=== PATIENT | male | born 1960 | race Caucasian/White ===

== ENCOUNTER 2022-12-07 01:06 | Day surgery (SDC) | payer BC, SELFPAY ==
[2022-12-06 11:43] VITALS: BMI 22.4
--- NOTE | 2022-12-06 12:15 | PC.NURSE ---
Report to the Outpatient Waiting Room, entrance under the green pavilion located off [facility], at time __0730 on date __12/07/22 . Planned Procedure Time: ___929 . Time changes happen often and if your time is changed the preop area will call you the afternoon before. - You and your visitor will be asked to self-screen and do not enter if you have any COVID symptoms. - A mask is optional within the hospital at this time. Patients may have clear liquids (water, carbonated beverages, clear teas, apple juice) until 3 hours prior to surgery with a maximum of 20 ounces. - No food from midnight until time of surgery - Infants may have breast milk until 4 hours before surgery, infant formula 6 hours prior to surgery. - Children will be allowed to drink immediately following surgery. If applicable, please bring a bottle or sippy cup to assist with drinking. Juice, water, soda, and popsicles are readily available. For infants on formula, please bring formula the day of surgery. Pacifiers are allowed. Take the following medications with a SIP of water the morning of surgery: NONE DO NOT STOP ANY OF YOUR OTHER PRESCRIPTION MEDICATIONS PRIOR TO SURGERY ?EXCEPT THE FOLLOWING Medications to discontinue _PT STATES LAST DOSE ELIQUIS & ASPIRIN 12/05/22_ Date to take last dose Please no make-up, nail swedish, hairspray, perfume, deodorant, or body powder the day of surgery. No jewelry (including any body piercings) or valuables the day of surgery, leave them at home. Please take a shower or bath the night before, or the morning of, surgery with an antibacterial soap. Wear comfortable, loose fitting clothing. Children are encouraged to wear pajamas. - Jewelry must be removed prior to entering the operating room. Rings and piercings that are not removed may be cut off. - The hospital will not accept responsibility for valuables. - Please leave all valuables, including medications, at home the day of surgery. If you are going home after surgery, a licensed fuel truck driver must drive you home. - NO public transportation without another adult if you receive anesthesia. - We recommend that an adult stay with you for 24 hours following discharge. - We also recommend that you do not drive, make important decision, drink alcoholic beverages, or take any drugs that were not prescribed by your health care provider for at least 24 hours after your discharge time. For Pediatric surgeries, we recommend two adults accompany the child home. Follow any additional instructions given to you from your surgeon. If you or anyone in your household have experienced Covid symptoms in the past week, please notify your surgeon or the nurse liaison at the phone number below for possible testing. Telephone instructions given to ____PT and asked if any additional questions and then verbalized understanding. Patient advised to call surgeon office or pre surgery nurse liaison [phone] if any additional questions.
--- NOTE | 2022-12-06 13:11 | P.PNAN_ITS ---
Anes - Initial Pre Proc Eval Procedure: Operation Date: 12/07/22 09:30 Proposed Procedures p Cystoscopy, Left Ureteroscopy, Left Stone Extraction, Possible Left Retrograde Pyelogram, Possible Left Stent Placement, Holmium Laser Lithotripsy, Right Retrgrade Pyelogram with Right Stent Removal - Nelson Heath MD Date/Time: 12/06/22 13:11 Surgeon: Nelson Heath MD Pre Op Diagnosis: Left Ureteral Stones, Right Renal Stones Patient Data Age: 62 Gender: M Height: 1.8 m Weight: 72.72 kg Allergies Allergy/AdvReac Type Severity Reaction Status Date / Time sotalol Allergy CARDIAC Verified 12/06/22 11:39 ARREST diltiazem AdvReac UNABLE TO Verified 12/06/22 11:39 RECALL STEROIDS AdvReac ELEVATED Uncoded 12/06/22 12:18 BLOOD SUGAR Home Medications Medication Instructions Recorded Confirmed Type apixaban 5 mg tablet (Eliquis) 5 mg BID 12/06/22 12/06/22 History aspirin 81 mg capsule 81 mg PO HS 12/06/22 12/06/22 History atorvastatin 80 mg tablet 80 mg DAILY 12/06/22 12/06/22 History dapagliflozin propanediol 10 mg 10 mg DAILY 12/06/22 12/06/22 History tablet (Farxiga) metoprolol succinate 50 mg 50 mg PO HS 12/06/22 12/06/22 History tablet,extended release 24 hr sacubitril 24 mg-valsartan 26 mg 1 tablet BID 12/06/22 12/06/22 History tablet (Entresto) Patient hx anesthesia problems: none Family hx anesthesia problems: none Results Review: All pre-operative results and documents have been reviewed as part of the pre- operative evaluation. [facility] Past Medical History Medical History (Updated 12/07/22 @ 07:05 by Nelson Heath MD) CHF (congestive heart failure) Diabetes type 2, controlled History of heart attack Hyperlipidemia Hypertension Surgical History Surgical History (Updated 12/06/22 @ 13:12 by Nic Malhotra DO) History of coronary artery stent placement Social History Social History Smoking status: Former smoker Tobacco type: cigarettes Second hand tobacco smoke exposure: No Additional smoking assessment comments: PT STATES 1PK EVERY 3 DAYS/OFF-ON/QUIT 2010~ Alcohol intake: never Substance use: never Substance use type: does not use Living arrangements: with family Additional living arrangements comments: PT LIVES WITH HIS 2 SONS Spiritual care concerns: No Anes - Eval Final PreProcedure Day of Procedure 12/06/22 13:11 Patient weight: normal Heart: regular rate and rhythm Lungs: clear to auscultation and normal air movement Airway: Mallampati scale class II Neurological: alert and oriented Last oral intake: >/= 8 hours ASA classification: III Emergent: no Anesthetic plan: proceed Anesthesia type and monitoring: general LMA and standard monitoring Results Review: All pre-operative results and documents have been reviewed as part of the pre- operative evaluation. Informed Consent: The patient's anesthetic plan and its attendant risks and benefits were discussed with the patient/family/POA. Questions were solicited and answers provided to the satisfaction of the patient/family/POA.
[2022-12-07] VITALS (9 sets, daily range): BP systolic 105–179; BP diastolic 72–130; PULSE 60–117; RESP 12–22; TEMP 36.2–36.7; O2SAT 99–100
--- NOTE | ~2022-12-07 | XR_ITS ---
EXAMINATION: XR retrograde pyelo w/stent LT DATE: 12/07/2022 10:07 INDICATION: Left internal ureteral stent placement TECHNIQUE: Fluoroscopic images from a left internal ureteral stent placement are submitted for review . 85 seconds of fluoroscopy time. 4 fluoroscopic images FINDINGS: There is a left double-J internal ureteral stent projecting in expected position, with proximal Banner loop at the level of the renal pelvis and distal loop in the pelvis within the bladder lumen. IMPRESSION: 1. Left internal ureteral stent placement. Please refer to real-time procedural findings for detail s. Reviewed, dictated and finalized at location B. IMPRESSION: 1. Left internal ureteral stent placement. Please refer to real-time procedur al findings for details.
--- NOTE | 2022-12-07 07:04 | PM.HPGS ---
History of Present Illness History of Present Illness Consent: Risks, benefits, and alternatives have been discussed and questions answered. Patient agrees to proceed with procedure. Chief complaint: Left Ureteral Stones, Right Renal Stones Narrative: Ariel Dempsey is a 62 year old male Recently cared for by my partner Dr. Perez. Patient was found to have large obstructing left distal ureteral stone with urinary tract infection. Additionally he had perinephric stranding around his right kidney with hydronephrosis. Endoscopic evaluation revealed a right distal ureteral stricture. A ureteral stent has been placed on the right and left for different reasons. He now presents for definitive intervention. He is aware the risk of these procedures including ureteral injury requiring replacement of ureteral stents on either or both sides. His where the risk of postoperative urinary tract infection, hematuria and need for additional procedures. Review of Systems Review of Systems: All systems reviewed & are unremarkable except as noted in HPI and below PMFSH Past Medical History Medical History (Updated 12/07/22 @ 07:05 by Nelson Heath MD) CHF (congestive heart failure) Diabetes type 2, controlled History of heart attack Hyperlipidemia Hypertension Surgical History Surgical History (Updated 12/06/22 @ 13:12 by Nic Malhotra DO) History of coronary artery stent placement Social History Social History Smoking status: Former smoker Tobacco type: cigarettes Second hand tobacco smoke exposure: No Additional smoking assessment comments: PT STATES 1PK EVERY 3 DAYS/OFF-ON/QUIT 2010~ Alcohol intake: never Substance use: never Substance use type: does not use Living arrangements: with family Additional living arrangements comments: PT LIVES WITH HIS 2 SONS Spiritual care concerns: No Meds Home Medications and Allergies Home Medications Medication Instructions Recorded Confirmed Type apixaban 5 mg tablet (Eliquis) 5 mg BID 12/06/22 12/06/22 History aspirin 81 mg capsule 81 mg PO HS 12/06/22 12/06/22 History atorvastatin 80 mg tablet 80 mg DAILY 12/06/22 12/06/22 History dapagliflozin propanediol 10 mg 10 mg DAILY 12/06/22 12/06/22 History tablet (Farxiga) metoprolol succinate 50 mg 50 mg PO HS 12/06/22 12/06/22 History tablet,extended release 24 hr sacubitril 24 mg-valsartan 26 mg 1 tablet BID 12/06/22 12/06/22 History tablet (Entresto) Allergies Allergy/AdvReac Type Severity Reaction Status Date / Time sotalol Allergy CARDIAC Verified 12/06/22 11:39 ARREST diltiazem AdvReac UNABLE TO Verified 12/06/22 11:39 RECALL STEROIDS AdvReac ELEVATED Uncoded 12/06/22 12:18 BLOOD SUGAR Exam Const: General: no acute distress Resp: Effort & Inspection: normal respiratory effort GI: Inspection: non-distended GI Palp: No abdominal tenderness and No Guarding due to palpation present (GI) Auscultation: normal bowel sounds Assessment and Plan Assessment and plan (1) Left ureteral stone: Code(s): N20.1 - Calculus of ureter Status: Acute (2) Hydronephrosis, right: Code(s): N13.30 - Unspecified hydronephrosis Status: Acute Assessment and Plan: Cystoscopy, right ureteral stent removal with right retrograde pyelogram Left ureteroscopy with laser lithotripsy, stone extraction, possible retrograde pyelogram and stent replacement
[2022-12-07] MEDS: LACTATED RINGERS 1,000 ML 30 ML IV CONT ×2 (08:00→10:08)
[2022-12-07 08:35] LABS: Glucose Point of Care 256 mg/dl (65-105)
[2022-12-07] MEDS: INSULIN HUMAN REGULAR (*BKC) 100 UNITS/ML IV PUSH (08:43)
[2022-12-07 08:47] LABS: Anion Gap 7 mmol/L (8-16); Blood Urea Nitrogen 41 mg/dL (9-20); Calcium 8.9 mg/dL (8.4-10.2); Carbon Dioxide 21 mmol/L (22-30); Chloride 100 mmol/L (98-107); Estimated CRCL calculation 22 ml/min; Estimated Glomerular Filt Rate 20; Glucose 269 mg/dL (65-110); Sodium 128 mmol/L (137-145)
--- NOTE | 2022-12-07 09:05 | WPDHPUPDATE1 ---
History and Physical Update Update Date/Time: 12/07/22 09:05 History and Physical has been reviewed, including an updated exam of the patient. There are NO changes in the patient's condition. Risks, benefits, and alternatives have been discussed and questions answered. Patient agrees to proceed with procedure.
[2022-12-07] MEDS: LIDOCAINE HCL 2% GEL UROJET 10 ML PKG MUCOUS MEM (09:35)
--- NOTE | 2022-12-07 10:06 | P.OP_ITS ---
Procedure Note - Detailed Date of Procedure 12/07/22 Pre-op Diagnosis Left Ureteral Stones, Right Hydronephrosis Post-op Diagnosis Same Procedure Performed Cystoscopy, right ureteral stent removal and right retrograde pyelogram. Cystoscopy, left ureteral stent removal, left ureteroscopy with laser lithotripsy and stent replacement Surgeon Nelson Heath MD Anesthesia General Description of Procedure Patient brought to the operative suite where he has prepped and draped in routine sterile fashion while in dorsal lithotomy position. 2% xylocaine jelly was introduced intraurethrally and general anesthesia is administered per the anesthesia department. Cystoscopy is undertaken with a 19 F rigid cystoscope. There was no urethral strictures and minimal prostatic hyperplasia. The tip of the indwelling right ureteral stent is grasped ( and an otherwise normal bladder) in the stent is brought to the external urethral meatus. A 0.035 in glidewire was advanced into the right renal pelvis and the stent is removed. Retrograde pyelography was obtained over the wire with a angiographic catheter. There appears to be some concentric mild narrowing of the distal ureter consistent with ureteral edema. As per patient's request preoperatively we opted to leave the right ureteral stent out and will plan renal ultrasonography and several weeks. The left ureteral stent was then grasped and brought to the meatus. A 0.035 in glidewire was advanced in the left renal pelvis and the distal ureter was d ilated with an 8 F 10 F dilator. Ureteroscopy was undertaken with a short tapered semi-rigid ureteral scope. He has a very large distal ureteral calculus which was fractured using a 200 micron holmium laser fiber with a dusting technique. All fragments greater than or equal 2 mm in size removed with a 1.9 F disposable stone basket. A 4.8 F variable length left ureteral stent was replaced with the proximal coil in the renal pelvis and distal coil bladder. All scopes and wires removed. Drains Yes Packing No Pathology Yes Complications No immediate complications Condition Stable Disposition PACU
[2022-12-07] MEDS: MEPERIDINE HCL INJ (*CRX) 50 MG/ML AMPUL 12.5 MG IV PUSH ×2 (11:03→11:15)
--- NOTE | 2022-12-07 11:27 | SUR.PHASEI ---
Dr. Malhotra aware of BP and HR. Continue to monitor at this time.
== END 2022-12-07 12:25 | disposition home or self-care (01) ==
PROVIDERS: Anesthesiology; PCP Internal Medicine; Visit Provider Urology
PROC: (CPT 52352; principal; 2022-12-07 09:30)
DX: N13.2 Hydronephrosis with renal and ureteral calculous obstruction (principal); I11.0 Hypertensive heart disease with heart failure; I50.9 Heart failure, unspecified; E78.5 Hyperlipidemia, unspecified; I25.2 Old myocardial infarction; E11.9 Type 2 diabetes mellitus without complications; Z95.5 Presence of coronary angioplasty implant and graft; Z87.891 Personal history of nicotine dependence; Z79.01 Long term (current) use of anticoagulants; Z79.82 Long term (current) use of aspirin; Z79.84 Long term (current) use of oral hypoglycemic drugs
CPT/HCPCS: 52356; 36415; 74420; 80048; 82365; 82948; 88300; C1769; C1894; C2617; J1100; J1815; J2175; J2405; J2704; J7120; Q9966